=== PATIENT | male | born 1985 | race Two or more races ===

== ENCOUNTER → 2022-07-31 | Outpatient (CLI) | payer OTHER ==
--- NOTE | 2022-07-31 17:16 | CA ---
Transthoracic Echo Report Name: Hank Watkins Age: 37 Gender: M : 1985 Exam Date: 07/31/2022 15:49 Exam Location: [facility] Ht (in): 71 Wt (lb): 270 Ordering Physician: Tk Connors MD Attending/Referring Phys: Dory HAJI Human Resources Professional Stefany Owens RDCS Procedure CPT: Indications: R01.1 Cardiac Hx: Technical Quality: Good Contrast 1: Total Dose (mL): Contrast 2: Total Dose (mL): MEASUREMENTS (Male / Female) Normal Values 2D ECHO LV Diastolic Diameter PLAX 5.1 cm 4.2 - 5.9 / 3.9 - 5.3 cm LV Systolic Diameter PLAX 3.3 cm IVS Diastolic Thickness 1.3 cm 0.6 - 1.0 / 0.6 - 0.9 cm LVPW Diastolic Thickness 1.2 cm 0.6 - 1.0 / 0.6 - 0.9 cm LV Relative Wall Thickness 0.5 RV Internal Dim ED PLAX 3.5 cm LA Systolic Diameter LX 3.1 cm 3.0 - 4.0 / 2.7 - 3.8 cm LV Diastolic Volume MOD 4C 142.6 cm??? LV Systolic Volume MOD 4C 53.5 cm??? LV Ejection Fraction MOD 4C 62.5 % LV Diastolic Length 4C 9.1 cm LV Systolic Length 4C 7.0 cm LV Diastolic Volume MOD 2C 148.4 cm??? LV Systolic Volume MOD 2C 54.8 cm??? LV Ejection Fraction MOD 2C 63.0 % LV Diastolic Length 2C 9.8 cm LV Systolic Length 2C 7.8 cm LA Volume 57.7 cm??? 18 - 58 / 22 - 52 cm??? M-MODE Aortic Root Diameter MM 3.6 cm MV E Point Septal Separation 0.4 cm AV Cusp Separation MM 2.7 cm DOPPLER AV Peak Velocity 158.6 cm/s AV Peak Gradient 10.1 mmHg MV Area PHT 3.4 cm??? Mitral E Point Velocity 97.8 cm/s Mitral A Point Velocity 68.4 cm/s Mitral E to A Ratio 1.4 MV Deceleration Time 222.7 ms MV E' Velocity 12.0 cm/s Mitral E to MV E' Ratio 8.2 TR Peak Velocity 229.3 cm/s TR Peak Gradient 21.0 mmHg Right Ventricular Systolic Press 25.8 mmHg FINDINGS Left Ventricle Left ventricular ejection fraction is estimated at 55-60 %. Left ventricular cavity size normal. Normal left ventricular wall motion. Mildly increased septal wall thickness. Right Ventricle Mild right ventricular dilatation. Right ventricular systolic pressure within normal limits. Right Atrium Normal right atrial size. Left Atrium Normal left atrial size. Mitral Valve Structurally normal mitral valve. No mitral stenosis, regurgitation or prolapse. Aortic Valve Aortic valve not well visualized. No aortic valve stenosis or regurgitation. Tricuspid Valve Tricuspid valve not well visualized. Trace tricuspid regurgitation. Pulmonic Valve Structurally normal pulmonic valve. No pulmonic regurgitation. Pericardium Normal pericardium. No pericardial effusion. Aorta Normal size aortic root and proximal ascending aorta. CONCLUSIONS Normal LV systolic function Previewed by: Dr. Jose M Ramsey MD (Electronically Signed) Final Date: 31 July 2022 17:15
== END | disposition home or self-care (01) ==
LOC: RADECHMAIN 15:40
PROVIDERS: ATTEND Family Medicine
DX: R01.1 Cardiac murmur, unspecified (principal)
CPT/HCPCS: 93306

== ENCOUNTER → 2022-08-13 | Outpatient (CLI) | payer OTHER ==
--- NOTE | 2022-08-13 19:33 | CT ---
EXAMINATION TYPE: CT iac wo con CT DLP: 297 mGycm, Automated exposure control for dose reduction was used. DATE OF EXAM: 08/13/2022 5:28 PM INDICATION: Patient age:Male; 37 years old; Reason for study: H71.91; COMPARISON: None. TECHNIQUE: Multiple thin axial images were obtained through the temporal bones and internal auditory canals. Additional coronal reformatted images were obtained. No IV contrast was utilized. CT Contrast: Contrast used: none. FINDINGS: Right Temporal Bone: External Ear: Demonstrates thickening of the soft tissues along the osseous structures with opacifica tion distally, The tympanic membrane is present opacified on the external aspect. Middle Ear: The ossicles demonstrate a normal appearance. Prussak's space is clear and the scutum i s intact. There is no evidence of osseous erosion and the tegmen tympani is intact. Inner Ear: Cochlea, vestibule and semi circular canals are unremarkable. No evidence of carotid pineda l dehiscence. Two and a half turns of the cochlea are identified. The vestibular aqueduct is not enl arged. Mastoid Air Cells: The mastoid air cells demonstrate scattered opacities. No osseous erosion. The teg men mastoideum is intact. The aditus ad antrum is clear. Internal Auditory Canal: The internal auditory canal is unremarkable. Left Temporal Bone: External Ear: The external auditory canal is unremarkable, The tympanic membrane is present and unrem arkable. Middle Ear: The ossicles demonstrate a normal appearance. Prussak's space is clear and the scutum i s intact. There is no evidence of osseous erosion and the tegmen tympani is intact. Inner Ear: Cochlea, vestibule and semi circular canals are unremarkable. No evidence of carotid pineda l dehiscence. Two and a half turns of the cochlea are identified. The vestibular aqueduct is not enl arged. Mastoid Air Cells: The mastoid air cells are clear. The tegmen mastoideum is intact. The aditus ad an trum is clear. Internal Auditory Canal: The internal auditory canal is unremarkable. IMPRESSION: 1. Right external auditory canal opacities with suspected skin thickening correlate for otitis exter na. Superimposed cerumen impaction is also likely present. 2. Few scattered opacified right mastoid air cells correlate for mastoiditis. No osseous erosion at this time. 3. No right middle ear effusion. 4. The left temporal bone is grossly unremarkable.
== END | disposition home or self-care (01) ==
LOC: RADCTMAIN 17:01
PROVIDERS: ATTEND Family Medicine
DX: H71.91 Unspecified cholesteatoma, right ear (principal); H61.891 Other specified disorders of right external ear
CPT/HCPCS: 70480

== ENCOUNTER → 2024-04-23 | Outpatient (CLI) | payer OTHER | LOC: CPPFTMAIN 08:13 | PROVIDERS: ATTEND Internal Medicine Critical Care Medicine | DX: J44.9 Chronic obstructive pulmonary disease, unspecified (principal) | CPT/HCPCS: 94060; 94726; 94729 ==